=== PATIENT | male | born 1985 | race American Indian/Alaskan Native ===

== ENCOUNTER 2019-11-21 08:39 | Emergency (ER) | payer SELFPAY ==
[2019-11-21] MEDS ORDERED: ACETAMINOPHEN W/CODEINE 300-30 MG TAB PO ONE (09:34)
[2019-11-21] MEDS ORDERED: KETOROLAC 60 MG/2 ML INJ IM ONE (09:34)
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
--- NOTE | 2019-11-21 10:14 | XRay Report ---
LEFT SHOULDER 3 VIEWS INDICATION / CLINICAL INFORMATION: fall onto shoulder COMPARISON: None available. FINDINGS: BONES / JOINT(S): No acute fracture or subluxation. No significant arthritis. SOFT TISSUES: No significant abnormality. ADDITIONAL FINDINGS: None. Signer Name: Roberto Kay MD Signed: 11/21/2019 10:10 AM Workstation Name: [id number]
[2019-11-21 10:41] VITALS: BP 128/92
== END 2019-11-21 10:40 | disposition home or self-care (01) ==
LOC: ED 08:39
DX: S43.402A Unspecified sprain of left shoulder joint, initial encounter (principal); F17.200 Nicotine dependence, unspecified, uncomplicated; Z98.890 Other specified postprocedural states; Z79.899 Other long term (current) drug therapy; X58.XXXA Exposure to other specified factors, initial encounter; Y93.39 Activity, other involving climbing, rappelling and jumping off; Y92.89 Other specified places as the place of occurrence of the external cause; Y99.8 Other external cause status
CPT/HCPCS: 99283

== ENCOUNTER 2020-08-22 03:40 | Emergency (ER) | payer SELFPAY ==
[2020-08-22 04:12] VITALS: BP 120/70
== END 2020-08-22 05:15 | disposition home or self-care (01) ==
LOC: ED 03:40
DX: J02.9 Acute pharyngitis, unspecified (principal)
CPT/HCPCS: 99282

== ENCOUNTER 2021-09-15 08:53 | Emergency (ER) | payer SELFPAY ==
[2021-09-15 09:11] VITALS: BP 121/81
--- NOTE | 2021-09-15 09:53 | XRay Report ---
LEFT KNEE 4 VIEW(S) INDICATION / CLINICAL INFORMATION: pain sp fall COMPARISON: None available. FINDINGS: BONES / JOINT(S): No acute displaced fracture or dislocation. Linear ossific density adjacent to the proximal medial tibia in the region of the distal MCL may represent sequela of prior MCL injury. Ther e is a suprapatellar joint effusion present which is nonspecific. Sequela of [place]-Schlatter disease at the tibial tuberosity. SOFT TISSUES: No significant abnormality. ADDITIONAL FINDINGS: None. Signer Name: Nabor Singh MD Signed: 09/15/2021 9:48 AM Workstation Name: [id number]
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
[2021-09-15] MEDS ORDERED: HYDROcodone/ACETAMINOPHEN 10-325MG TAB PO ONE (10:26)
== END 2021-09-15 11:09 | disposition home or self-care (01) ==
LOC: ED 08:53
DX: M25.462 Effusion, left knee (principal); M25.562 Pain in left knee; F17.200 Nicotine dependence, unspecified, uncomplicated; W19.XXXA Unspecified fall, initial encounter; Y93.89 Activity, other specified; Y92.89 Other specified places as the place of occurrence of the external cause; Y99.8 Other external cause status
CPT/HCPCS: 99283